=== PATIENT | male | born 1985 | race African-American/Black ===

== ENCOUNTER 2019-03-28 22:29 | Emergency (ER) | payer OTHER ==
[~2019-03-28] VITALS: Ht 167.6 cm; Wt 63.5 kg
[2019-03-28 22:29] VITALS: BP 153/82
--- NOTE | 2019-03-28 22:29 | NUR ---
PT BIBA TAKEN TO BED #8
--- NOTE | 2019-03-28 22:35 | NUR ---
33 Y/O M BIBA WITH C/O ALOC. PER EMS PT INGESTED "HANDFUL OF [place] GUMMIES." AAOX1 TO NAME. [facility] 14, PT IS CONFUSED. PT NODS HIS HEAD TO QUESTIONS, NODED WHEN ASKED IF HE CONSUMED ALCOHOL. PUPILS DIALTED. PT COOPERATIVE. EUPHORIC MOOD, PT NOTED SINGING AND DANCING WHILE IN BED. PT CONNECTED TO MONITORING SYSTEM. BED IN LOWEST POSITION. BEDRAILS X2 UP. ERMD NOTIFIED. WILL CONTINUE TO MONITOR.
[2019-03-28] MEDS ORDERED: NACL 0.9% 1,000 ML IV ONE (22:40)
[2019-03-28 23:04] LABS: BASOPHILS % (AUTO) 0.4 % (0.0-2.0); EOSINOPHILS % (AUTO) 0.4 % (0.0-4.0); HEMATOCRIT 36.8 % (36-52); LYMPHOCYTES # (AUTO) 1.5 K/uL (2.0-11.5); MEAN CORPUSCULAR HEMOGLOBIN 30 pg (27-31); MEAN CORPUSCULAR HGB CONC 33 g/dL (33-37); MEAN CORPUSCULAR VOLUME 91.2 fL (80-94); MONOCYTES # (AUTO) 0.6 K/uL (0.8-1.0); NEUTROPHILS # (AUTO) 4.7 K/uL (1.8-7.7); NEUTROPHILS % (AUTO) 68.2 % (42.2-75.2); PLATELET COUNT (AUTO) 240 K/uL (140-450); RED BLOOD CELL COUNT(AUTO) 4.03 MIL/uL (4.20-6.10); RED CELL DISTRIBUTION WIDTH 14.2 % (11.6-13.7); WHITE BLOOD COUNT (AUTO) 6.9 K/uL (4.8-10.8)
[2019-03-28 23:12] LABS: ANION GAP 13.6 (8-16); CARBON DIOXIDE 27.3 mmol/L (21-32); CHLORIDE 97 mmol/L (98-107); CREATININE 1.3 mg/dL (0.7-1.3); GFR ARICAN-AMERICAN 81 mL/min (>90); GLUCOSE 132 mg/dL (74-106); POTASSIUM 3.9 mmol/L (3.5-5.1); SODIUM SERUM 134 mmol/L (136-145); UREA NITROGEN, BLOOD 12 mg/dL (7-18)
[2019-03-28 23:18] LABS: ALBUMIN 4.1 g/dL (3.4-5.0); ASPARTATE AMINOTRANSFERASE 22 U/L (15-37); TOTAL BILIRUBIN 0.5 mg/dL (0.0-1.0)
[2019-03-28 23:19] LABS: ACETAMINOPHEN < 0.5 ug/ml (10-30); SALICYLATE < 2.8 mg/dL (2.8-20.0)
--- NOTE | 2019-03-28 23:20 | NUR ---
Attempted to perform an EKG on the PT, but he kept rolling around in the bed and not allowing me to connect the leads. [facility] was notified.
[2019-03-28 23:22] LABS: BARBITURATE, URINE NEG. ng/ml (NEG <=200); BENZODIAZEPINE, URINE NEG. ng/mL (NEG <=200); CANNABINOID, URINE POS. ng/mL (NEG <=50); COCAINE, URINE NEG. ng/mL (NEG <=300); OPIATE, URINE NEG. ng/mL (NEG <=2000); PHENCYCLIDINE SCREEN,URINE NEG. ng/mL (NEG <=25)
--- NOTE | 2019-03-28 23:44 | NUR ---
PER DR DEL ROSARIO PT STABLE FOR D/C WHEN PT HAS RIDE HOME. PT DOES NOT HAVE CELL PHONE AND CANNOT RECALL NUMBER FOR ANY FAMILY MEMBERS OR FRIENDS.
--- NOTE | 2019-03-29 00:07 | NUR ---
PT ASLEEP, VISIBLE CHEST RISE AND FALL NOTED. VSS. WILL CONTINUE TO MONITOR.
--- NOTE | 2019-03-29 00:40 | NUR ---
PT MOTHER CALLED AND STATED SHE WOULD [employer] PT. ETA UNKNOWN.
--- NOTE | 2019-03-29 01:30 | NUR ---
PT AROUSABLE TO NAME. TALKATIVE. DISCUSSED WITH PT THE IMPORTANCE OF PSYCHIATRIC MANAGEMENT AND MEDICATION COMPLIANCE. PT EXPRESSED UNDERSTANDING AND WANTING TO SEEK HELP TO MANAGE HIS MENTAL HEALTH CONDITION.
[2019-03-29 01:55] VITALS: BP 126/75
--- NOTE | 2019-03-29 01:55 | NUR ---
Patient discharged with v/s stable. Written and verbal after care instructions given and explained. Patient verbalized understanding. Ambulatory with steady gait. All questions addressed prior to discharge. Advised to follow up with PMD.
== END 2019-03-29 01:55 | disposition home or self-care (01) ==
LOC: MED 22:29 → EDBD 22:29 → MED 03-29 01:55
DX: F15.10 Other stimulant abuse, uncomplicated (principal); F12.10 Cannabis abuse, uncomplicated
CPT/HCPCS: 36415; 80053; 80305; 85025; 96360; 99283; G0480; G0482; J7030